=== PATIENT | female | born 1990 | race Two or more races ===

== ENCOUNTER 2016-05-09 11:50 | Emergency (ER) | payer OTHER ==
[2016-05-09 12:44] LABS: COLOR YELLOW; LEUKOCYTE ESTERASE,URINE 1+ (NEGATIVE); NITRITE,URINE POSITIVE (NEGATIVE)
[2016-05-09 12:49] VITALS: BP 112/62; PULSE 78; RESP 18; TEMP 97; O2SAT 97
--- NOTE | 2016-05-09 13:31 | UCPHY ---
H & P Time Seen by Provider: 05/09/16 12:34 Patient Type: Established HPI/ROS: 26-year-old female presents complaining of frequent urination, burning with urination and has noticed a small amount of blood in her urine as well. She denies vaginal discharge. No fevers no chills, no back pain. Review of systems General no fever no chills no weakness HEENT no eye pain no eye discharge. No eye redness, no sore throat Respiratory no cough, no shortness of breath Cardiac no chest pain, no peripheral edema GI positive suprapubic abdominal pain, no diarrhea, no constipation, no nausea, no vomiting no flank pain, no hematuria, positive dysuria Musculoskeletal no myalgias, no joint pain Heme no easy bruising, no easy bleeding Endo no polyuria, no polydipsia Skin no rashes, no pruritus Neuro no syncope, no dizziness, no headaches Psych is no suicidal ideation, no homicidal ideation Past Medical/Surgical History: Noncontributory Social History: Denies alcohol or drug use Smoking Status: Never smoked Physical Exam: 26-year-old female Female alert and oriented in no acute distress nontoxic appearance, afebrile Atraumatic normocephalic Neck supple Lungs clear to auscultation bilaterally Heart regular rate and rhythm Abdomen normoactive bowel sounds soft mild suprapubic tenderness no guarding no rebound Back no CVA tenderness Extremities no cyanosis clubbing or edema Skin no rash Constitutional: Initial Vital Signs Temperature (C) 36.1 C 05/09/16 12:41 Heart Rate 78 05/09/16 12:41 Respiratory Rate 18 05/09/16 12:41 Blood Pressure 112/62 05/09/16 12:41 O2 Sat (%) 97 05/09/16 12:41 O2 Delivery Mode Room Air Allergies/Adverse Reactions: No Known Allergies Allergy (Unverified 04/01/15 21:33) Home Medications: Medication Instructions Recorded Hydrocodone/Acetaminophen [[place] 1 - 2 tab PO Q4H PRN #15 tab 04/01/15 5/325 (RX)] Cephalexin 500 mg PO BID #14 tablet 05/09/16 Phenazopyridine HCl 200 mg PO TID #6 tab 05/09/16 [Phenazopyridine] Medical Decision Making ED Course/Re-evaluation: Patient seen and evaluated for urinary frequency, dysuria Exam benign UA positive for leuk esterase, nitrite and bacteria Impression UTI Plan Cephalexin Phenazopyridine Follow culture - Data Points Laboratory Results: 05/09/16 12:25 Urine Color YELLOW Urine Appearance CLEAR Urine pH 6.0 (5.0-7.5) Ur Specific [place] 1.010 (1.002-1.030) Urine Protein TRACE H (NEGATIVE) Urine Ketones NEGATIVE (NEGATIVE) Urine Blood 3+ H (NEGATIVE) Urine Nitrate POSITIVE H (NEGATIVE) Urine Bilirubin NEGATIVE (NEGATIVE) Urine Urobilinogen 0.2 EU EU (0.2-1.0) Ur Leukocyte Esterase 1+ H (NEGATIVE) Urine RBC 1-3 /hpf /hpf (0-3) Urine WBC 10-15 /hpf H /hpf (0-3) Ur Epithelial Cells 2+ /lpf H /lpf (NONE-1+) Urine Bacteria 3+ /hpf H /hpf (NONE SEEN) Urine Mucus 1+ /lpf /lpf (NONE-1+) Ur Culture Indicated? INDICATED H (NI) Urine Glucose NEGATIVE (NEGATIVE) Departure - Departure Disposition: Home, Routine, Self-Care Clinical Impression: Urinary tract infection Condition: Good Instructions: Urinary Tract Infection in Women (ED) Referrals: NONE *PRIMARY CARE P,. [Primary Care Provider] - As per Instructions Prescriptions: Cephalexin 500 mg PO BID #14 tablet Phenazopyridine HCl [Phenazopyridine] 200 mg PO TID #6 tab - PQRS PQRS Measurement: na
[2016-05-09 13:50] LABS: BACTERIA 3+ /hpf (NONE SEEN); MUCUS 1+ /lpf (NONE-1+)
== END 2016-05-09 13:42 | disposition home or self-care (01) ==
LOC: CED 11:50
DX: N39.0 Urinary tract infection, site not specified (principal)
CPT/HCPCS: 81003-PO; 81015-PO; 99214-PO; G0463-PO